=== PATIENT | male | born 1960 | race Two or more races ===

== ENCOUNTER 2020-08-17 05:53 | Day surgery (SDC) | payer OTHER | END 2020-08-17 10:25 | disposition home or self-care (01) | LOC: AMB-ENDOS 05:53 | PROVIDERS: ATTEND Colon & Rectal Surgery | DX: D12.3 Benign neoplasm of transverse colon (principal); K64.0 First degree hemorrhoids; Z20.822 Contact with and (suspected) exposure to COVID-19 ==